=== PATIENT | male | born 1940 | race Caucasian/White ===

== ENCOUNTER 2016-09-23 00:46 | Emergency (ER) | payer OTHER, MEDICARE ==
[~2016-09-23] VITALS: Ht 177.8 cm; Wt 75.3 kg
[~2016-09-23 00:46] MED LIST: ALPHAGAN P5 ML OPH; COUMADIN2.5 M1 PO; DORZOLAMIDE-TIM10 ML OPH; MIRALAX119 GM PO; OMEPRAZOLE20 M2 PO; PRAVASTATIN SOD20 M2 PO; TRAMADOL HCL50 M1 PO; TYLENOL325 M1 PO
[2016-09-23 00:51] VITALS: BP 155/72
--- NOTE | 2016-09-23 01:56 | CT SCAN REPORT ---
EXAMINATION: CT HEAD WITHOUT CONTRAST CLINICAL INFORMATION: Head strike, on warfarin COMPARISON: MRI 02/19/2010 TECHNIQUE: Contiguous axial imaging was performed from the skull base to vertex without intravenous administration of contrast. DLP: 529.16 mGy-cm. FINDINGS: There is no evidence of acute intracranial hemorrhage or territorial infarction. No abnormal mass effect or midline shift is seen. King to white matter differentiation is well preserved. No extra-axial fluid collections are identified. The ventricles are normal in size. There is no abnormal attenuation within the brain parenchyma. There is mild left parieto-occipital scalp soft tissue swelling. No acute fracture is seen. The visualized portions of the paranasal sinus are well-aerated. There is partial opacification of the right mastoid air cells. IMPRESSION: No acute intracranial pathology.
--- NOTE | 2016-09-23 02:03 | ED MVC/FALL/TRAUMA COMPLAINT ---
History of Present Illness General Chief Complaint: Fall Stated Complaint: BIBA S/P MECHANICAL FALL Source: patient, old records, EMS Exam Limitations: no limitations Vital Signs & Intake/Output Vital Signs & Intake/Output Vital Signs Date Time Temp Pulse Resp B/P Pulse O2 O2 Flow FiO2 Ox Delivery Rate 09/23 0051 96.4 88 20 155/72 100 Room Air Allergies Coded Allergies: NO KNOWN ALLERGIES (08/22/16) Reconcile Medications Acetaminophen (Tylenol) 325 MG TABLET 650 MG PO Q6P PRN PAIN SCALE 1-4 Brimonidine Tartrate (Alphagan P) 5 ML DROPS 1 GTT OPH BID EYE (Reported) Dorzolamide HCl/Timolol Maleat (Dorzolamide-Timolol Eye Drops) 10 ML DROPS 1 GTT OPH BID EYE (Reported) Omeprazole 20 MG CAPSULE.DR 1 CAP PO DAILY GI (Reported) Polyethylene Glycol 3350 (Miralax) 17 GRAM/DOSE POWDER 17 GM PO DAILY PRN constipation Pravastatin Sodium 20 MG TABLET 1 TAB PO DAILY CHOLESTEROL (Reported) Tramadol HCl 50 MG TABLET 50 MG PO Q6 pain scale 5-10 Warfarin Sodium (Coumadin) 2.5 MG TABLET 1 TAB PO DAILY BLOOD THINNER Triage Note: TRIAGE: BIBA FROM HOME (LIVES AT HOME W/ SPOUSE) S/P MECHANICAL FALL JUST TRAINING MGR, "FELL BACK INTO THIN GLASS AND SHATTERED GLASS." +HIT HEAD, -LOC. PATIENT ALERT AND ORIENTED X3. S/P R HIP SURGERY, REPORTS "DIDN'T HIT THE R SIDE, JUST UMPED THE L HIP A LITTLE." AMBULATES W/ WALKER BASELINE. REPORTS LEFT [place] TODAY. DENIES ANY COMPLAINTS, NO PAIN. Triage Nurses Notes Reviewed? yes Onset: Just prior to arrival Duration: minute(s):, constant, continues in ED Timing: recent history Severity: mild Injuries/Fall Location: head Method of Injury: direct blow, fall Loss of Consciousness: no loss of consciousness No Modifying Factors: none HPI: The patient returned home today after rehabilitation for hip fracture and replacement on Coumadin. Prior to admission patient lost balance striking the back of his head and falling onto his left side. There was no loss consciousness fever chills nausea vomiting diarrhea abdominal pain chest pain shortness breath headache dysuria rash bleeding change in motor sensory function change in bowel bladder habit Past History Travel History Traveled to [place] past 21 day No Medical History Any Pertinent Medical History? see below for history Neurological: NONE EENT: glaucoma Cardiovascular: TAKES CHOL MED TO CONTROL PLAQUE IN [place] BUT DOESN'T HAVE > CHOL-PER PT carotid stenosis Respiratory: pneumonia Gastrointestinal: NONE Hepatic: NONE Renal: NONE Musculoskeletal: chronic back pain, sciatica Psychiatric: NONE Endocrine: NONE Blood Disorders: anemia, HEMACHROMATOSIS LOW HEMOGLOBIN-GETS B12 Cancer(s): SKIN CANCER DECKHAND/Reproductive: NONE Other Medical Hx: Of note, he has a history of lymphoma which isn't treated because it is "10%" per patient. Also he is treated with phlebotomy for hemochromatosis. Back pain from a fallFebruary 2016, he is seeing Dr Lawler for possible future surgery, describes some mild weakness in BLE at feet - "shuffling gait" per pt's History of MRSA: No History of VRE: No History of CDIFF: No Pneumonia Vaccine: 08/17/16 Influenza Vaccine: 07/05/16 Surgical History Surgical History: non-contributory Psychosocial History Who do you live with Spouse Services at Home None What is your primary language Greenlandic Tobacco Use: Refused to answer Family History Hx Contributory? No Review of Systems Review of Systems Constitutional: Reports: no symptoms. Eyes: Reports: no symptoms. Ears, Nose, Throat, Mouth: Reports: no symptoms. Respiratory: Reports: no symptoms. Cardiovascular: Reports: no symptoms. Gastrointestinal/Abdominal: Reports: no symptoms. Genitourinary: Reports: no symptoms. Musculoskeletal: Reports: no symptoms. Skin: Reports: no symptoms. Neurological/Psychological: Reports: no symptoms. All Other Systems: Reviewed and Negative Physical Exam Physical Exam General Appearance: well developed/nourished, alert, awake, anxious, mild distress Head: atraumatic, normal appearance Eyes: Bilateral: normal appearance, PERRL, EOMI, normal inspection. Ears, Nose, Throat, Mouth: hearing grossly normal, moist mucous membrane Neck: normal inspection, supple, full range of motion, normal alignment Respiratory: normal breath sounds, chest non-tender, no respiratory distress, quiet respiration, lungs clear Cardiovascular: regular rate/rhythm, normal peripheral pulses, norml femoral pulses equa Peripheral Pulses: 4+ carotid (R), 4+ carotid (L), 2+ radial (R), 2+ radial (L) Gastrointestinal: normal bowel sounds, soft, non-tender, no organomegaly Back: normal inspection, normal range of motion Extremities: normal range of motion, no ligament instability Neurologic/Psych: no motor/sensory deficits, awake, alert, oriented x 3, normal gait, normal mood/affect, 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 No Severe Sepsis Present: No Septic Shock Present: No Progress Differential Diagnosis: C/T/L spine injury, ICH Plan of Care: Orders Procedure Date/time Status CT HEAD WO IV CONTRAST 09/23 108 Active Diagnostic Imaging: Viewed by Me: CT Scan. Discussed w/RAD: CT Scan. Radiology Impression: no acute abnormality, no fracture Departure Departure Time of Disposition: 199 Disposition: HOME OR SELF CARE Condition: Stable Clinical Impression Primary Impression: Minor head injury Qualifiers: Encounter type: initial encounter Qualified Code: S00.90XA - Unspecified superficial injury of unspecified part of head, initial encounter Secondary Impressions: Fall at home Qualifiers: Encounter type: initial encounter Qualified Codes: W19.XXXA - Unspecified fall, initial encounter; Y92.099 - Unspecified place in other non- institutional residence as the place of occurrence of the external cause Referrals: RUI CRAWFORD MD (PCP/Family) Departure Forms: Customer Survey General Discharge Information
== END 2016-09-23 03:40 ==
LOC: ERH 00:46
DX: S09.90XA Unspecified injury of head, initial encounter (principal); W19.XXXA Unspecified fall, initial encounter; Y92.009 Unspecified place in unspecified non-institutional (private) residence as the place of occurrence of the external cause